=== PATIENT | female | born 1980 | race Caucasian/White ===

== ENCOUNTER → 2017-03-27 | Outpatient (CLI) | payer BC ==
[2017-03-27 11:26] LABS: BASOPHILS % (AUTO) 0.8 % (0.2-1.0); EOSINOPHILS # (AUTO) 0.1 x10^3/uL (0.0-0.2); EOSINOPHILS % (AUTO) 1.1 % (0.9-2.9); HEMATOCRIT 32.7 % (36.0-47.0); HEMOGLOBIN 10.6 g/dL (12.0-16.0); LYMPHOCYTES # (AUTO) 1.7 X10^3/uL (1.3-2.9); LYMPHOCYTES % (AUTO) 28.8 % (21.0-51.0); MEAN CORPUSCULAR HEMOGLOBIN 22.8 pg (27.0-34.0); MEAN CORPUSCULAR HGB CONC 32.4 g/dL (33.0-35.0); MEAN CORPUSCULAR VOLUME 70.2 fL (80.0-100.0); MEAN PLATELET VOLUME 6.8 fL (7.4-11.0); MONOCYTES # (AUTO) 0.4 x10^3/uL (0.3-0.8); MONOCYTES % (AUTO) 6.4 % (0.0-13.0); NEUTROPHILS # (AUTO) 3.8 x10^3/uL (2.2-4.8); NEUTROPHILS % (AUTO) 62.9 % (42.0-75.0); PLATELET COUNT 299 X10^3/uL (150.0-450.0); RED BLOOD COUNT 4.66 X10^6/uL (3.5-5.4); RED CELL DISTRIBUTION WIDTH 15.5 % (11.6-16.5)
[2017-03-27 11:28] LABS: BILIRUBIN,URINE NEGATIVE (NEGATIVE); BLOOD/HEMOGLOBIN,URINE 1+ (NEGATIVE); GLUCOSE, URINE NEGATIVE (NEGATIVE); KETONES,URINE NEGATIVE (NEGATIVE); LEUKOCYTE ESTERASE ,URINE 2+ (NEGATIVE); NITRITES,URINE NEGATIVE (NEGATIVE); PROTEIN,URINE NEGATIVE (NEGATIVE); UROBILINOGEN,URINE NORMAL (NORMAL)
[2017-03-27 11:38] LABS: APPEARANCE,URINE CLEAR (CLEAR); COLOR,URINE YELLOW (YELLOW)
[2017-03-27 11:39] LABS: AMORPHOUS SEDIMENT,UR TRACE /HPF (NEGATIVE); BACTERIA,URINE TRACE /HPF (NEGATIVE); SQUAMOUS EPITHELIAL CELL,UR MANY /HPF (NEGATIVE)
[2017-03-27 12:01] LABS: BLOOD UREA NITROGEN 14 mg/dL (7-18); CALCIUM 9.2 mg/dL (8.5-10.1); CARBON DIOXIDE 26.8 mmol/L (21-32); CHLORIDE 104 mmol/L (98-107); CREATININE 0.93 mg/dL (0.55-1.02); GLUCOSE 78 mg/dL (65-99); SODIUM 141 mmol/L (136-145); eGFR BLACK RACES > 60 (>60); eGFR NON BLACK RACES > 60 (>60)
[2017-03-27 12:11] LABS: PLATELET MORPHOLOGY COMMENT NORMAL (NORMAL)
[2017-03-27 12:12] LABS: HYPOCHROMASIA 1+
[2017-03-27 12:32] LABS: SERUM PREGNANCY TEST, QUAL NEGATIVE <10 mIU/mL
== END ==
LOC: EDBD → LAB 10:43
PROVIDERS: ATTEND Specialist
DX: Z01.818 Encounter for other preprocedural examination (principal); N94.6 Dysmenorrhea, unspecified; N92.5 Other specified irregular menstruation; D50.8 Other iron deficiency anemias
CPT/HCPCS: 36415; 80048; 81001; 84703; 85025; 85610; 85730; 86850; 86900; 86901; 87086

== ENCOUNTER 2017-03-29 06:25 | Day surgery (SDC) | payer BC ==
[2017-03-29] MEDS ORDERED: D5 1/2 NS 1000 ML 1,000 ML IV SCH ×2 (06:28→09:09)
[2017-03-29] MEDS ORDERED: ANCEF VIAL 1 GM 1 GM in NS 50 ML IV + SPIKE MINIBAG* 50 ML IV PRN (06:28)
[2017-03-29] MEDS ORDERED: NS 50 ML IV + SPIKE MINIBAG* 50 ML IV ONE (06:29)
[2017-03-29] MEDS ORDERED: ANCEF VIAL 1 GM ONE (06:30)
[2017-03-29] MEDS ORDERED: VASOSTRICT INJ 20 UNITS VIAL ONE (06:42)
[2017-03-29] MEDS ORDERED: DURAMORPH ONE (06:57)
[2017-03-29 08:02] VITALS: BMI 22.6
[2017-03-29] MEDS ORDERED: NS IRRIGATION 1000 ML 1,000 ML IR ONE (08:02)
[2017-03-29] MEDS ORDERED: DYLOJECT INJ IVP ONE (08:30)
[2017-03-29] MEDS ORDERED: XANAX PO PRN ×2 (08:45→09:09)
[2017-03-29] MEDS: DILAUDID INJ ONE ×2 (08:45→08:50)
[2017-03-29] MEDS ORDERED: CYMBALTA PO SCH (09:00)
[2017-03-29] MEDS ORDERED: BENADRYL INJ 50 MG VIAL IVP PRN ×2 (09:09)
[2017-03-29] MEDS ORDERED: NARCAN INJ IVP PRN (09:09)
[2017-03-29] MEDS ORDERED: REGLAN INJ 10 MG VIAL IVP PRN (09:09)
[2017-03-29] MEDS ORDERED: TORADOL 30 MG VIAL IVP PRN (09:09)
[2017-03-29] MEDS ORDERED: PERCOCET TAB 5/325 MG PO PRN (09:09)
[2017-03-29] MEDS ORDERED: ZOFRAN INJ 4 MG VIAL IVP PRN (09:09)
[2017-03-29] MEDS: TORADOL 30 MG VIAL IVP PRN ×2 (09:39→13:57)
[2017-03-29] MEDS ORDERED: DYLOJECT INJ ONE (09:42)
[2017-03-29] MEDS ORDERED: DIPRIVAN VIAL ONE (09:42)
[2017-03-29] MEDS ORDERED: VERSED ONE (09:42)
[2017-03-29] MEDS: ZOFRAN INJ 4 MG VIAL IVP PRN ×2 (13:57→18:39)
[2017-03-29] MEDS: PERCOCET TAB 5/325 MG PO PRN (18:39)
[2017-03-29] MEDS: MYLICON TAB 80 MG CHEW PO PRN (19:20)
[2017-03-29] MEDS: D5 1/2 NS 1000 ML 1,000 ML IV SCH (22:28)
[2017-03-29] MEDS: COLACE CAP 100 MG PO SCH (22:28)
[2017-03-30 04:39] LABS: BLOOD UREA NITROGEN 11 mg/dL (7-18); CALCIUM 7.8 mg/dL (8.5-10.1); CARBON DIOXIDE 26.8 mmol/L (21-32); CHLORIDE 105 mmol/L (98-107); GLUCOSE 102 mg/dL (65-99); SODIUM 138 mmol/L (136-145); eGFR BLACK RACES > 60 (>60); eGFR NON BLACK RACES > 60 (>60)
[2017-03-30 05:28] LABS: BASOPHILS % (AUTO) 0.4 % (0.2-1.0); EOSINOPHILS # (AUTO) 0.1 x10^3/uL (0.0-0.2); EOSINOPHILS % (AUTO) 1.5 % (0.9-2.9); HEMATOCRIT 25.8 % (36.0-47.0); HEMOGLOBIN 8.6 g/dL (12.0-16.0); LYMPHOCYTES # (AUTO) 1.5 X10^3/uL (1.3-2.9); LYMPHOCYTES % (AUTO) 24.2 % (21.0-51.0); MEAN CORPUSCULAR HEMOGLOBIN 23.6 pg (27.0-34.0); MEAN CORPUSCULAR HGB CONC 33.5 g/dL (33.0-35.0); MEAN CORPUSCULAR VOLUME 70.4 fL (80.0-100.0); MEAN PLATELET VOLUME 7.1 fL (7.4-11.0); MONOCYTES # (AUTO) 0.5 x10^3/uL (0.3-0.8); MONOCYTES % (AUTO) 7.8 % (0.0-13.0); NEUTROPHILS # (AUTO) 4.1 x10^3/uL (2.2-4.8); NEUTROPHILS % (AUTO) 66.1 % (42.0-75.0); PLATELET COUNT 207 X10^3/uL (150.0-450.0); RED BLOOD COUNT 3.66 X10^6/uL (3.5-5.4); RED CELL DISTRIBUTION WIDTH 15.9 % (11.6-16.5); WHITE BLOOD COUNT 6.2 X10^3/uL (3.6-10.0)
[2017-03-30 05:46] LABS: HYPOCHROMASIA 1+; PLATELET MORPHOLOGY COMMENT NORMAL (NORMAL)
[2017-03-30] MEDS: PERCOCET TAB 5/325 MG PO PRN ×2 (05:56→08:33)
[2017-03-30] MEDS: MYLICON TAB 80 MG CHEW PO PRN (05:56)
[2017-03-30] MEDS: D5 1/2 NS 1000 ML 1,000 ML IV SCH (06:35)
[2017-03-30 08:13] VITALS: BP 123/81
[2017-03-30] MEDS: COLACE CAP 100 MG PO SCH (08:34)
[2017-03-30] MEDS ORDERED: CYMBALTA PO SCH (09:00)
== END 2017-03-30 11:14 | disposition home or self-care (01) | DRG 743 ==
LOC: SURG1 06:25 → MED/SURG 09:18
PROVIDERS: ADMIT Specialist; ATTEND Specialist
PROC: 0UTC7ZZ Resection of Cervix, Via Natural or Artificial Opening (ICD-10-PCS; 2017-03-29)
PROC: 0UT97ZZ Resection of Uterus, Via Natural or Artificial Opening (ICD-10-PCS; principal; 2017-03-29 07:30)
DX: N92.5 Other specified irregular menstruation (principal); D25.2 Subserosal leiomyoma of uterus; N94.6 Dysmenorrhea, unspecified
CPT/HCPCS: 36415; 80048; 85025; A4222; G0378; J0690; J1170; J1885; J2250; J2405; J3490; J7042